=== PATIENT | male | born 1970 | race Hispanic/Latino ===

== ENCOUNTER 2018-05-16 17:11 | Inpatient (IN) | payer SELFPAY ==
[~2018-05-16] VITALS: Ht 180.3 cm; Wt 85.3 kg
[2018-05-16] MEDS ORDERED: INSULIN REGULAR, HUMAN 100 UNIT/1 ML 3ML VIAL SQ ONE (18:45)
[2018-05-16] MEDS ORDERED: SODIUM CHLORIDE FLUSH 10 ML SYR INJ PRN (19:15)
[2018-05-16 21:20] VITALS: BP 152/69
[2018-05-16 22:00] VITALS: BP 152/69
[2018-05-16 22:22] VITALS: BP 152/69
[2018-05-17] VITALS (8 sets, daily range): BP systolic 113–153; BP diastolic 57–83
[2018-05-17] MEDS ORDERED: DEXTROSE 50% SYRINGE 50 ML IV PRN (08:30)
[2018-05-17] MEDS: INSULIN LISPRO 100 UNIT/1 ML 3ML VIAL SQ SCH ×4 (08:35→20:45)
[2018-05-17] MEDS ORDERED: INSULIN LISPRO 100 UNIT/1 ML 3ML VIAL SQ SCH (11:30)
[2018-05-17 13:20] LABS: BASOPHILS # (AUTO) 0.1 (0.0-0.1); BASOPHILS % 0.6 % (0.0-1.0); EOSINOPHILS # (AUTO) 0.1 (0.0-0.4); EOSINOPHILS % 1.6 % (0.0-6.0); HEMATOCRIT 44.2 % (38.2-49.6); HEMOGLOBIN 15.3 g/dL (14.0-18.0); LYMPHOCYTES # (AUTO) 3.4 (1.0-3.2); LYMPHOCYTES % 38.5 % (18.0-39.1); MEAN CORPUSCULAR HEMOGLOBIN 31.8 pg (28-32); MEAN CORPUSCULAR HGB CONC 34.6 g/dL (31-35); MEAN CORPUSCULAR VOLUME 91.9 fL (81-99); MONOCYTES # (AUTO) 0.6 (0.2-0.8); MONOCYTES % 6.8 % (4.4-11.3); NEUTROPHILS # (AUTO) 4.5 (2.1-6.9); NEUTROPHILS % 52.2 % (38.7-80.0); PLATELET COUNT 253 x10e3/uL (140-360); RED BLOOD COUNT 4.81 x10e6/uL (4.3-5.7); RED CELL DISTRIBUTION WIDTH 11.7 % (11.7-14.4)
[2018-05-17] MEDS ORDERED: ASPIRIN 325 MG TAB PO NR (13:30)
[2018-05-17 13:35] LABS: ANION GAP 11.9 mmol/L (8-16); BLOOD UREA NITROGEN 17 mg/dL (7-26); BUN/CREATININE RATIO 19 (6-25); CALCIUM 8.7 mg/dL (8.4-10.2); CARBON DIOXIDE 27 mmol/L (22-29); CHLORIDE 98 mmol/L (98-107); CREATININE, SERUM 0.91 mg/dL (0.72-1.25); EST GLOMERULAR FILTRATION RATE > 60 ML/MIN (60-); GLUCOSE 302 mg/dL (74-118); MAGNESIUM 1.7 MG/DL (1.3-2.1); POTASSIUM 3.9 mmol/L (3.5-5.1); SODIUM 133 mmol/L (136-145)
[2018-05-17] MEDS: NICOTINE 21 MG/EA PATCH TOP SCH (13:59)
[2018-05-17] MEDS: ENOXAPARIN SOD INJ 40 MG/0.4 ML SYR SC SCH (13:59)
--- NOTE | 2018-05-17 15:06 | Diagnostic Imaging Report ---
History: Double vision Comparison studies: None Technique: Sagittal T2; axial DWI, FLAIR, MPGR, T1, Coronal FLAIR. Intravenous contrast: None Findings: Scalp: Normal in signal . No masses . Bone marrow: Normal in signal intensity. Extra-axial: No masses, no fluid collections. Brain sulci: Appropriate for age. Ventricles: Normal in size . No hydrocephalus . Parenchyma: To 3 mm T2/FLAIR hyperintensity foci at the bilateral frontal deep white matter, nonspecific No masses, hemorrhage, acute or chronic vascular insults. Suprasellar region: No abnormalities. Craniocervical junction: No abnormalities. Patent foramen magnum. No Chiari one malformation. Vessels: Normal flow-voids in the arteries and sinuses. IMPRESSION: 1. No acute abnormalities. 2. Nonspecific bifrontal white matter T2/FLAIR hyperintensities, could be seen in chronic migraines, minimal microvascular ischemic changes, early demyelination and normal patients Signed by: DR Gm Nicholson M.D. on 05/17/2018 3:02 PM
[2018-05-17] MEDS: METFORMIN HCL 500 MG TAB PO SCH (17:05)
[2018-05-17] MEDS: FAMOTIDINE 20 MG TAB PO SCH (17:05)
[2018-05-18 01:24] VITALS: BP 135/79
[2018-05-18 06:11] LABS: BASOPHILS % 0.5 % (0.0-1.0); EOSINOPHILS # (AUTO) 0.2 (0.0-0.4); HEMATOCRIT 42.4 % (38.2-49.6); HEMOGLOBIN 14.9 g/dL (14.0-18.0); LYMPHOCYTES # (AUTO) 3.5 (1.0-3.2); LYMPHOCYTES % 43.3 % (18.0-39.1); MEAN CORPUSCULAR HGB CONC 35.1 g/dL (31-35); MONOCYTES # (AUTO) 0.6 (0.2-0.8); MONOCYTES % 7.6 % (4.4-11.3); NEUTROPHILS # (AUTO) 3.8 (2.1-6.9); NEUTROPHILS % 46.4 % (38.7-80.0); PLATELET COUNT 240 x10e3/uL (140-360); RED BLOOD COUNT 4.66 x10e6/uL (4.3-5.7); RED CELL DISTRIBUTION WIDTH 11.7 % (11.7-14.4)
[2018-05-18 06:31] LABS: ANION GAP 10.8 mmol/L (8-16); BLOOD UREA NITROGEN 15 mg/dL (7-26); BUN/CREATININE RATIO 21 (6-25); CALCIUM 8.6 mg/dL (8.4-10.2); CARBON DIOXIDE 24 mmol/L (22-29); CHLORIDE 105 mmol/L (98-107); CREATININE, SERUM 0.72 mg/dL (0.72-1.25); EST GLOMERULAR FILTRATION RATE > 60 ML/MIN (60-); GLUCOSE 211 mg/dL (74-118); MAGNESIUM 1.6 MG/DL (1.3-2.1); POTASSIUM 3.8 mmol/L (3.5-5.1); SODIUM 136 mmol/L (136-145)
[2018-05-18 07:06] VITALS: BP 128/75
[2018-05-18] MEDS: METFORMIN HCL 500 MG TAB PO SCH (08:14)
[2018-05-18] MEDS: NICOTINE 21 MG/EA PATCH TOP SCH (08:14)
[2018-05-18] MEDS: ENOXAPARIN SOD INJ 40 MG/0.4 ML SYR SC SCH (08:14)
[2018-05-18] MEDS: FAMOTIDINE 20 MG TAB PO SCH (08:14)
[2018-05-18 08:27] VITALS: BP 128/75
[2018-05-18] MEDS ORDERED: METFORMIN HCL500 MG PO (10:40)
[2018-05-18] MEDS ORDERED: NICODERM CQ1 EAC2 TOP (10:40)
[2018-05-18 12:00] VITALS: BP 139/93
--- NOTE | 2018-05-18 14:52 | Consultation ---
DATE OF CONSULTATION: May 18, 2018 NEUROLOGY CONSULT NOTE HISTORY OF PRESENT ILLNESS: Mr. Mcfarland is 47-year-old rftcq-zzhp-vopcpyde man with no known significant past medical history, who presented to the Emergency Center at [facility] on May 16, 2018 with diplopia and other symptoms. Approximately 2 weeks ago, the patient developed shingles in the left V1 distribution. He saw a physician, who prescribed medications for treatment. While taking these medications, Mr. Mcfarland developed binocular diplopia and blurred vision. Thinking this was a side effect of the medications, patient stopped taking the prescribed medications to treat her shingles. Unfortunately, his binocular diplopia did not improve. On the days prior to admission, the patient saw 2 physicians for his symptoms. An eye doctor informed the patient his left eye "was not moving correctly." The eye doctor was uncertain as to why the patient had developed cranial nerve palsy, and so ordered blood work. The patient's serum glucose returned at 404. A subsequent visit to another physician revealed a serum blood glucose of 454. Mr. Mcfarland was instructed to proceed to the nearest Emergency Center for evaluation of possible stroke. Mr. Mcfarland does not endorse a visual field cut, expressive or receptive aphasia, facial droop, hemiparesis, hemihypesthesia, impairment of balance, impairment of gait, confusion, dizziness, headache, nausea, vomiting, increased urinary urgency or frequency, or fatigue. The patient does report "some slurred speech" occurring intermittently over the past several days. Upon arrival in the Emergency Center, the patient was afebrile with a blood pressure of 155/85 mmHg and a pulse of 92 beats per minute. His neurological examination, including his speech, was documented as being normal/nonfocal. Routine laboratory data did reveal an elevated serum glucose. Mr. Mcfarland was admitted to [facility] for further evaluation and treatment of newly diagnosed diabetes mellitus, elevated blood pressure, and binocular diplopia. REVIEW OF SYSTEMS: Binocular diplopia, dysarthria. Otherwise the 12-point review of systems is negative. PAST MEDICAL HISTORY: Prior left Longo's palsy, shingles in the left V1 distribution diagnosed 2 weeks ago. Mr. Mcfarland does not have a primary care physician nor does he see a doctor on a regular basis. PAST SURGICAL HISTORY: None. PAST HOSPITALIZATIONS: None. FAMILY HISTORY: The patient's paternal and maternal grandparents are . Their medical histories are unknown. The patient's father is . He had diabetes mellitus and cirrhosis of the liver from hepatitis C. The patient's mother is alive and has diabetes mellitus. Mr. Mcfarland has 1 brother and 4 sisters, all of whom are alive and healthy. He has no biological children. SOCIAL HISTORY: The patient is . 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 The patient does report current tobacco use. He has smoked 1 pack per day for the past 35 years. He reports alcohol use. Every 2 to 3 days he will consume two 6 packs of beer. The patient does not endorse current or prior recreational drug use. HOME MEDICATIONS: None. ALLERGIES: NO KNOWN DRUG ALLERGIES. NO KNOWN FOOD ALLERGIES. NO KNOWN ALLERGIES TO LATEX. NO KNOWN ALLERGIES TO IODINE OR OTHER CONTRAST MATERIALS. PHYSICAL EXAMINATION: VITAL SIGNS: Height 71 inches, weight 188 pounds. BMI 26.2 kg per meter squared. Blood pressure 128/75 mmHg, pulse 61 beats per minute. Respiratory rate 18 breaths per minute. Oxygen saturation 99% on room air. GENERAL: The patient is awake and alert. Does not appear distressed. HEENT: Normocephalic and atraumatic. Pupils are equal, round and reactive to light. Moist mucous membranes. NECK: Supple. No appreciable thyromegaly. No appreciable carotid bruits. CARDIOVASCULAR: S1 and S2. Regular rate and rhythm. No murmurs, rubs or gallops. RESPIRATORY: Clear to auscultation bilaterally. No wheezes, rhonchi or rales. EXTREMITIES: The skin is warm and dry. No clubbing, cyanosis or edema. The posterior tibial and dorsalis pedis pulses are 2+ and symmetric. SKIN: No rashes or lesions. NEUROLOGIC: Memory/attention: The patient is awake and alert. Oriented to person, place, time, and situation. CRANIAL NERVES: Cranial nerve I: Not tested. Cranial nerves II, III, IV, : Pupils are equal and round, react briskly to light (from 4 mm to 2 mm). Extraocular movements intact except as follows: Left partial cranial nerve palsy. No nystagmus. Cranial nerve V: Sensation to light touch and pinprick is intact in the bilateral V1 through V3 distributions. Strength of the temporalis and masseter muscles is within normal limits. Cranial nerve VII: The face is symmetric, as are all facial movements. Strength is within normal limits. Cranial nerve VIII: Hearing is intact to finger rub bilaterally. Cranial nerve IX and X: The soft palate elevates equally and symmetrically. Cranial nerve XI: Normal strength of the bilateral sternocleidomastoid and trapezius muscles. Cranial nerve XII: The tongue protrudes midline and moves symmetrically from side to side. STRENGTH: Bulk is normal, and strength is 5/5 in the bilateral deltoids, biceps, triceps, wrist flexors and extensors, finger flexors and extensors, intrinsic hand muscles, hip flexors, knee flexors and extensors, ankle dorsiflexion and plantar flexion, and intrinsic foot muscles. Tone is normal. DTRs: Deep tendon reflexes are 2+ and symmetric at the triceps, biceps, brachioradialis, patellas, and Achilles. Plantar responses are flexor bilaterally. SENSATION: Intact to light touch and pinprick in both arms and both legs. CEREBELLAR: Auowor-jhae-gobmxu and heel-danielson movements are intact without dysmetria or other impairment. GAIT: Deferred. SPEECH: Spontaneous speech is normal without appreciable dysarthria or aphasia. Repetition is intact. INVOLUNTARY MOVEMENTS: None. PRONATOR DRIFT: None. LABORATORY DATA: Sodium 136, potassium 3.8. Chloride 105, carbon dioxide 24, anion gap 10.8. BUN 15, creatinine 0.72, estimated GFR greater than 60. BUN to creatinine ratio 21. Glucose 211, calcium 8.6. Magnesium 1.6. Hemoglobin A1c is 10.8. In the last 24 hours serum glucoses have ranged from 182 to 302. The CBC with differential and platelets reveals a white blood cell count of 8.12 with 46.4% neutrophils, 43.3% lymphocytes, 7.6% monocytes, 2.0% eosinophils, and 0.5% basophils. The hemoglobin and hematocrit are 14.9 and 42.4, respectively. The platelet count is 240,000. DIAGNOSTIC STUDIES: MRI of the brain without contrast 05/17/2018: On my review, there is no evidence of recent or remote large territorial ischemia, hemorrhage, mass, or mass effect. There are nonspecicT2/flair, hyperintense foci, predominantly in the bifrontal region, probably representing chronic small vessel ischemic disease. ASSESSMENT AND PLAN : Mr. Mcfarland is a 47-year-old dyhis-kcwj-rpohgbch man with newly diagnosed diabetes mellitus type 2 with binocular diplopia/blurred vision and subjective dysarthria. Other than a left partial cranial nerve palsy, the patient's neurological examination is nonfocal. His laboratory data and other diagnostic studies have been reviewed and are documented above. As stated above, Mr. Mcfarland endorses intermittent dysarthria over the past several days. At present, there is no evidence of dysarthria on his neurological examination. There was no evidence of dysarthria on his neurological examination in the Emergency Center. Nursing staff who have cared for the patient for the past 2 days have not witnessed dysarthria. Patient's MRI of the brain without contrast was reviewed, and there is no evidence of a stroke and near the language center of the left frontal lobe. Therefore, it is probable the dysarthria is a symptom of hyperglycemia. Mr. Mcfarland' partial left cranial nerve palsy is secondary to uncontrolled diabetes mellitus. Continue treatment of his diabetes mellitus type 2 is recommended. As regard his binocular diplopia/blurred vision, patient should patch eyes on alternating days for treatment of his visual symptoms. A referral to occupational therapy at [facility] should be considered. On average, it should take 3 to 6 months for the patient's symptoms to improve. There are no other recommendations from the neurology service at this time. Thank you for this consultation. Time spent: 70 minutes. Job#: [id number] GH MTDD
--- NOTE | 2018-05-18 14:56 | Discharge Summary ---
ADMISSION DIAGNOSES 1. Diplopia. 2. Hyperglycemia without diagnosis of diabetes. 3. Smoker. DISCHARGE DIAGNOSES 1. Diplopia. 2. Hyperglycemia without diagnosis of diabetes. 3. Smoker. 4. Type 2 diabetes. 5. Ruled out cerebrovascular accident. HISTORY: The patient has no known history and no surgical history as well. HOSPITAL COURSE: A 47-year-old male with double vision that began Saturday before admission. He also complains of blurry vision, but says he wears glasses that are not with him currently. He denies weakness and dizziness. He complained of slurred speech that began yesterday and resolved on its own. He went to the eye doctor who said nothing was wrong with his eyes. He then went to his MD and found that his blood sugar was over 400. At the outpatient ER his blood pressure was again over 400. On admission, A1c was checked which turned out to be 10.8. CT of the head negative. MRI of the brain negative. Neurology consulted who said that the patient had cranial nerve palsy. He will follow up with [facility] for outpatient rehab and will alternate days with eye patch per neurology recommendation. The patient was given metformin for his diabetes and discussed the importance of diabetes and medication compliance. The patient and sister understand discharge instructions and followup, and agree to plan. Vital signs stable. The patient afebrile. The patient will discharge home and follow up with [facility] as well as primary care physician. Dictated by: Bárbara Mckeon NP DONG GRANT MD Job#: [id number]
[2018-05-18] MEDS: INSULIN LISPRO 100 UNIT/1 ML 3ML VIAL SQ SCH (15:08)
== END 2018-05-18 14:05 | disposition home or self-care (01) | DRG 74 ==
LOC: FSED 17:11 → ERHOLD 19:02 → MED/SURG 21:23
PROVIDERS: ADMIT Internal Medicine; ATTEND Internal Medicine
DX: E11.41 Type 2 diabetes mellitus with diabetic mononeuropathy (principal); H49.22 Sixth [abducent] nerve palsy, left eye; E11.65 Type 2 diabetes mellitus with hyperglycemia; R03.0 Elevated blood-pressure reading, without diagnosis of hypertension; H53.2 Diplopia; F17.210 Nicotine dependence, cigarettes, uncomplicated
CPT/HCPCS: 36415; 70450; 70551; 80048; 81003; 82948; 83036; 83735; 84484; 85025; 93005; 96372; 99284; J1650